=== PATIENT | female | born 1990 | race Caucasian/White ===

== ENCOUNTER 2018-10-16 11:54 | Emergency (ER) | payer MEDICAID ==
[~2018-10-16] VITALS: Ht 167.6 cm; Wt 93.6 kg
[2018-10-16 12:01] VITALS: Ht 167.6 cm; Wt 93.6 kg
[2018-10-16 12:46] LABS: BASOPHIL % 0.3 % (0-2); PLATELET COUNT 215 x10^3mcL (130-400); RED CELL DISTRIBUTION WIDTH 13.9 % (11.5-14.5)
[2018-10-16 12:54] LABS: CARBON DIOXIDE 25.3 mmol/L (21-32); CHLORIDE SERUM 102 mmol/L (98-107); CREATININE SERUM 0.6 mg/dL (0.6-1.0); GFR1 > 60 mL/min; GLUCOSE SERUM 96 mg/dL (74-106); POTASSIUM SERUM 3.5 mmol/L (3.5-5.1); SODIUM SERUM 138 mmol/L (136-145)
[2018-10-16 12:56] LABS: AMYLASE 50 U/L (25-115); LIPASE 87 IU/L (73-393)
[2018-10-16 13:05] LABS: ALBUMIN 3.2 g/dL (3.4-5.0)
[2018-10-16 13:24] LABS: TOTAL PROTEIN, SERUM 7.4 g/dL (6.4-8.2)
[2018-10-16 13:25] LABS: ALT/SGPT 16 U/L (14-59); AST/SGOT 8 U/L (15-37); BILIRUBIN TOTAL 0.35 mg/dL (0.20-1.00)
[2018-10-16 13:27] LABS: ALKALINE PHOSPHATASE 107 U/L (46-116)
[2018-10-16 15:47] VITALS: BP 98/53
== END 2018-10-16 15:47 | disposition home or self-care (01) ==
LOC: ED 11:54
PROVIDERS: Specialist
DX: O21.0 Mild hyperemesis gravidarum (principal); O23.42 Unspecified infection of urinary tract in pregnancy, second trimester; Z3A.10 10 weeks gestation of pregnancy
CPT/HCPCS: J2550; J7030

== ENCOUNTER 2018-12-20 15:06 | Emergency (ER) | payer MEDICAID ==
[~2018-12-20] VITALS: Ht 167.6 cm; Wt 96.2 kg
[2018-12-20 15:10] VITALS: Ht 167.6 cm; Wt 96.2 kg
[2018-12-20 16:26] VITALS: BP 118/58
== END 2018-12-20 16:26 | disposition home or self-care (01) ==
LOC: ED 15:06
DX: O9A.212 Injury, poisoning and certain other consequences of external causes complicating pregnancy, second trimester (principal); S93.402A Sprain of unspecified ligament of left ankle, initial encounter; Z3A.19 19 weeks gestation of pregnancy; W01.0XXA Fall on same level from slipping, tripping and stumbling without subsequent striking against object, initial encounter; Y93.89 Activity, other specified; Y92.89 Other specified places as the place of occurrence of the external cause; Y99.8 Other external cause status